=== PATIENT | female | born 1995 | race Two or more races ===

== ENCOUNTER 2019-02-07 10:16 | Inpatient (IN) | payer MEDICAID ==
[2019-02-10 10:13] LABS: ABSOLUTE EOSINOPHILS # (AUTO) 0.1 10^3/uL (0.0-0.6); ABSOLUTE LYMPHOCYTES (AUTO) 1.5 10^3/uL (0.5-4.7); ABSOLUTE MONOCYTES (AUTO) 0.7 10^3/uL (0.1-1.4); ABSOLUTE NEUT (AUTO) 5.1 10^3/uL (1.7-8.2); BASOPHILS % (AUTO) 0.2 % (0-2); EOSINOPHILS % (AUTO) 1.5 % (0-6); HEMATOCRIT 34.9 % (36.0-47.0); HEMOGLOBIN 11.7 g/dL (12.0-15.5); LYMPHOCYTES % (AUTO) 20.7 % (13-45); MEAN CORPUSCULAR HGB CONC 33.4 g/dL (32.0-36.0); MEAN CORPUSCULAR VOLUME 90 fl (80-97); MONOCYTES % (AUTO) 9.1 % (3-13); PLATELET COUNT 127 10^3/uL (150-450); RED BLOOD COUNT 3.88 10^6/uL (3.72-5.28); RED CELL DISTRIBUTION WIDTH 13.3 % (11.5-14.0); SEGMENTED NEUTROPHILS % (AUTO) 68.5 % (42-78); TOTAL CELLS COUNTED % (AUTO) 100 %; WHITE BLOOD COUNT 7.5 10^3/uL (4.0-10.5)
[2019-02-10 10:16] LABS: APPEARANCE,URINE CLOUDY; BILIRUBIN,URINE SMALL (NEGATIVE); CALCIUM OXALATE CRYSTALS,URINE MODERATE /HPF; COLOR,URINE AMBER; GLUCOSE, URINE NEGATIVE (NEGATIVE); KETONES,URINE NEGATIVE (NEGATIVE); LEUKOCYTE ESTERASE,URINE MODERATE (NEGATIVE); NITRITE,URINE NEGATIVE (NEGATIVE); PROTEIN,URINE 30 mg/dL (NEGATIVE); URINE SPECIFIC GRAVITY 1.023
[2019-02-10 10:27] LABS: URINE AMPHETAMINES SCREEN NEGATIVE; URINE BARBITURATES SCREEN NEGATIVE; URINE BENZODIAZEPINES SCREEN NEGATIVE; URINE COCAINE SCREEN NEGATIVE; URINE MARIJUANA (THC) SCREEN NEGATIVE; URINE METHADONE SCREEN NEGATIVE; URINE PHENCYCLIDINE SCREEN NEGATIVE
[2019-02-12 14:26] LABS: HEMATOCRIT 35.2 % (36.0-47.0); HEMOGLOBIN 11.9 g/dL (12.0-15.5); MEAN CORPUSCULAR HEMOGLOBIN 30.3 pg (27.0-33.4); MEAN CORPUSCULAR VOLUME 89 fl (80-97); PLATELET COUNT 127 10^3/uL (150-450); RED BLOOD COUNT 3.94 10^6/uL (3.72-5.28); RED CELL DISTRIBUTION WIDTH 13.6 % (11.5-14.0); WHITE BLOOD COUNT 7.4 10^3/uL (4.0-10.5)
[2019-02-13] MEDS ORDERED: CEFAZOLIN 1 GM/D5W RTU 1 GM/50 ML RTUPB IV PRN (05:00)
[2019-02-13] MEDS ORDERED: RINGERS SOLUTION,LACTATED 1,000 ML IV PRN ×2 (05:00→09:08)
[2019-02-13] MEDS ORDERED: OXYTOCIN 10 UNIT/ML VIAL ONE (07:24)
[2019-02-13] MEDS ORDERED: KETOROLAC TROMETHAMINE 60 MG/2 ML SDV ONE (07:24)
[2019-02-13] MEDS ORDERED: ACETAMINOPHEN 1,000 MG/100 ML RTUPB IV ONE (07:25)
[2019-02-13] MEDS ORDERED: PHENYLEPHRINE HCL INJ/PF 10 MG/1 ML SDV ONE (07:25)
[2019-02-13] MEDS ORDERED: METHYLERGONOVINE MALEATE INJ/PF 0.2 MG/1 ML AMPULE ONE (07:25)
[2019-02-13] MEDS ORDERED: FENTANYL CITRATE INJ/PF 100 MCG/2 ML AMPUL ONE (07:25)
[2019-02-13] MEDS ORDERED: MIDAZOLAM 2 MG/2 ML INJ ONE (07:25)
[2019-02-13] MEDS ORDERED: ONDANSETRON HCL INJ/PF 4 MG/2 ML SDV ONE (07:25)
[2019-02-13] MEDS ORDERED: CEFAZOLIN INJ 1 GM VIAL ONE (08:05)
[2019-02-13] MEDS ORDERED: FENTANYL CITRATE INJ/PF 100 MCG/2 ML AMPUL IV PRN ×3 (08:09)
[2019-02-13] MEDS ORDERED: MEPERIDINE HCL/PF INJ 25 MG/1 ML DISP.SYRIN IV PRN (08:09)
[2019-02-13] MEDS ORDERED: MORPHINE SULFATE 10 MG/ML INJ IV PRN (08:09)
[2019-02-13] MEDS ORDERED: DIPHENHYDRAMINE HCL 50 MG/ML VIAL IV PRN (08:09)
[2019-02-13] MEDS ORDERED: PROMETHAZINE HCL INJ 25 MG/1 ML VIAL IV PRN ×2 (08:09→09:08)
[2019-02-13] MEDS ORDERED: OXYCODONE-ACETAMINOPHEN 5-325 MG TABLET PO PRN ×3 (08:09→09:08)
--- NOTE | 2019-02-13 09:01 | PDOC DELIVERY SUMMARY ---
Delivery Summary - Maternal Hx : II Hx Para: I Hx # Term Pregnancies: 1 Hx # Pregnancies: 0 Number of Living Children: 1 DICK: 02/17/19 Gestational Age: 39 Risk Factors: Previous Ruptured Membranes: AROM Time of Rupture: 08:12 Fluids: Clear - Delivery Labor: Not In Labor Presentation: Vertex Heart Rate Monitoring: Done Pre-Operatively Support Person Present: No Location: OR : Scheduled Placenta Description: normal appearing Number of Vessels (Cord): 3 Nuchal Cord: Yes Delivery of Placenta Date: 02/13/19 Delivery of Placenta Time: 08:14 Estimated Blood Loss: 600 ml - Medications Type of Anesthesia:: Spinal - Infant Assess and Care Baby 1 Male Delivery of Infant Date: 02/13/19 Delivery of Time: 08:13 at 1 minute: 8 at 5 minutes: 8 Preprinted Number On Band: [id number] Skin to Skin: Yes Skin to Skin (Mins): 5 To Nursery At: 08:24 Mode of Transport: Carried Delivery Weight: 3,750 Delivery Length: 21 in - Delivery Personnel Family Practice Medical Doctor: TAMIKO COATS RN: CHANDNI NAYLOR RN: DOTTIE CHRISTIE MD: GAGE BELL
[2019-02-13] MEDS ORDERED: ACETAMINOPHEN 1,000 MG/100 ML RTUPB IV PRN (09:08)
[2019-02-13] MEDS ORDERED: SIMETHICONE 80 MG TAB.CHEW PO PRN (09:08)
[2019-02-13] MEDS ORDERED: ACETAMINOPHEN 325 MG TABLET PO PRN (09:08)
[2019-02-13] MEDS ORDERED: DIPH/PERTUSS(ACELL)/TETANUS VAC/PF 0.5 ML SYR (>=10YO) IM PRN (09:08)
[2019-02-13] MEDS ORDERED: OXYTOCIN/NORMAL SALINE 20 UNIT/1,000 ML RTUINJ IV PRN (09:08)
[2019-02-13] MEDS ORDERED: HYDROMORPHONE HCL INJ/PF 2 MG/ML AMPULE IV PRN (09:08)
--- NOTE | 2019-02-13 09:08 | Operative Report ---
Operative Report DATE OF SURGERY: 02/13/19 PREOPERATIVE DIAGNOSIS: 1. Intrauterine at 39-0/7 weeks. 2. Previo us section. 3. GBS negative. 4. Rh+. 5. Rubella immune POSTOPERATIVE DIAGNOSIS: Same OPERATION: Repeat section SURGEON: GAGE ZAMUDIO ANESTHESIA: Spinal TISSUE REMOVED OR ALTERED: Placenta COMPLICATIONS: None ESTIMATED BLOOD LOSS: 600 mL INTRAOPERATIVE FINDINGS: Male with a cephalic presentation plus nuchal cord x1; vacuum assisted; Apgars 8 at 1, 9 at 5 with a weight of 8 pounds 3 ounces; normal-appearing uterus with a thin lower uterine segment, bilateral tubes and ovaries PROCEDURE: The patient was taken to the operating room where spinal anesthesia was obtained and found to be adequate. She was then prepped and draped in the normal sterile fashion and placed in the dorsal supine position with a leftward tilt. A Pfannenstiel skin incision was then made, using her previous scar as a guide, and carried through to the underlying layers of the fascia with the scalpel. The fascia was incised in the midline and the incision extended laterally with the Orozco scissors. The superior aspect of the fascial incision was then grasped with Brent clamps elevated and the underlying rectus muscles dissected off both bluntly and sharply. Attention was then turned to the inferior aspect of the fascial incision which in a similar fashion was grasped, tented up with Brent clamps, and the rectus muscles dissected off both bluntly and sharply. The rectus muscles were then in the midline and the peritoneum was identified and entered both sharply and bluntly. The peritoneal incision was then extended superiorly and inferiorly with good visualization of the bladder. The bladder blade was inserted and the vesicouterine peritoneum identified grasped with Luxembourger pickups and entered sharply with the Metzenbaum scissors. This incision was then extended laterally with the Metzenbaum scissors and a bladder flap created digitally. The bladder blade was then reinserted and the lower uterine segment incised in a transverse fashion with the scalpel. It was noted, at the lower uterine segment was very thin. Only one pass with the scalpel, allowed me to enter the uterine cavity. The uterine incision was then extended bluntly and with the bandage scissors. The bladder blade was removed and the infant's head was delivered from cephalic presentation atraumatically, with assistance from a Kiwi vacuum. The nose and mouth were suctioned and the cord doubly clamped and cut. The infant was handed off to waiting pediatricians. The placenta was then delivered manually and the uterus exteriorized and cleared of all clots and debris. The uterine incision was then repaired with 0 Vicryl in a running locked fashion. 0-Chromic was used to obtain hemostasis via imbrication of the initial layer. The bladder flap was then repaired with 3-0 Vicryl in a running fashion. The uterus was returned to the patient's abdomen and Interceed was placed overlying the uterine incision, as well as a piece plac ed vertically on the anterior surface of the uterus, to prevent adhesions. The gutters were cleared of all clots and debris. All operative sites were noted to be hemostatic. The fascia was reapproximated with 0 Vicryl in a running fashion from each lateral edge to the midline. The subcutaneous fat layer was then closed in an interrupted fashion with 3-0 vicryl. The skin was closed with 4-0 Monocryl in a running, subcuticular fashion. The patient tolerated the procedure well. Sponge, lap, needle and instrument counts are correct x 2. 2 g of Ancef were given prior to skin incision. The patient was taken to the recovery area awake and in stable condition.
[2019-02-13] MEDS ORDERED: IBUPROFEN 800 MG TABLET PO SCH (12:00)
[2019-02-13] MEDS: OXYCODONE-ACETAMINOPHEN 5-325 MG TABLET PO PRN ×2 (13:30→20:28)
[2019-02-13] MEDS: PRENATAL VITAMIN W DHA CAPSULE PO SCH (13:39)
[2019-02-13] MEDS: DOCUSATE SODIUM 100 MG CAPSULE PO SCH ×2 (13:39→17:13)
[2019-02-13] MEDS ORDERED: KETOROLAC TROMETHAMINE INJ/PF 30 MG/1 ML SDV IV SCH (14:00)
[2019-02-13] MEDS: KETOROLAC TROMETHAMINE INJ/PF 30 MG/1 ML SDV IV SCH (17:13)
[2019-02-14] MEDS: KETOROLAC TROMETHAMINE INJ/PF 30 MG/1 ML SDV IV SCH (02:40)
[2019-02-14 06:47] LABS: HEMATOCRIT 31.3 % (36.0-47.0); HEMOGLOBIN 10.6 g/dL (12.0-15.5); MEAN CORPUSCULAR HEMOGLOBIN 30.4 pg (27.0-33.4); MEAN CORPUSCULAR HGB CONC 33.9 g/dL (32.0-36.0); MEAN CORPUSCULAR VOLUME 90 fl (80-97); PLATELET COUNT 111 10^3/uL (150-450); RED BLOOD COUNT 3.48 10^6/uL (3.72-5.28); RED CELL DISTRIBUTION WIDTH 13.6 % (11.5-14.0); WHITE BLOOD COUNT 10.5 10^3/uL (4.0-10.5)
[2019-02-14] MEDS ORDERED: IRON SUCROSE COMPLEX INJ/PF 100 MG/5 ML SDV IV ONE (09:00)
[2019-02-14] MEDS: OXYCODONE-ACETAMINOPHEN 5-325 MG TABLET PO PRN ×2 (09:54→18:06)
[2019-02-14] MEDS: DOCUSATE SODIUM 100 MG CAPSULE PO SCH ×2 (09:55→18:06)
[2019-02-14] MEDS: PRENATAL VITAMIN W DHA CAPSULE PO SCH (09:55)
--- NOTE | 2019-02-14 10:26 | PDOC PROGRESS REPORT ---
Subjective-OB Progress Note for:: 02/14/19 Subjective: Holding baby, doing well, asking for pain medication, walking, eating well Physical Exam (OB) Vital Signs: Temp Pulse Resp BP Pulse Ox 97.7 F 66 16 122/71 98 02/14/19 03:59 02/14/19 03:59 02/14/19 03:59 02/14/19 03:59 02/14/19 03:59 Intake & Output 02/13/19 02/14/19 02/15/19 06:59 06:59 06:59 Intake Total 550 Output Total 900 Balance -350 Weight 87.1 kg - PIH/Pre-Eclampsia Clonus: Negative - Dressing Removed: No - Opsite; scant sanguinous drainage noted - Lochia Lochia Amount: Scant < 10 ml Lochia Color: Rubra/Red - Abdomen Description: Tender, Soft Hernia Present: No Fundal Description: Firm, Midline Fundal Height: u/u - u/2 Objective-Diagnostic Laboratory: 02/14/19 06:27 02/14/19 06:27 WBC 10.5 RBC 3.48 L Hgb 10.6 L Hct 31.3 L MCV 90 MCH 30.4 MCHC 33.9 RDW 13.6 Plt Count 111 L Assessment and Plan(PN) - Assessment and Plan (1) Status post repeat low transverse section Is this a current diagnosis for this admission?: Yes - Time Spent with Patient Time with patient: Less than 15 minutes Medications reviewed and adjusted accordingly: Yes - Disposition Anticipated Discharge: Home Within: within 24 hours
[2019-02-14] MEDS: IBUPROFEN 800 MG TABLET PO SCH ×3 (12:31→23:22)
[2019-02-15] MEDS: OXYCODONE-ACETAMINOPHEN 5-325 MG TABLET PO PRN (03:07)
[2019-02-15] MEDS: IBUPROFEN 800 MG TABLET PO SCH ×2 (06:38→11:11)
[2019-02-15] MEDS: DOCUSATE SODIUM 100 MG CAPSULE PO SCH (09:59)
[2019-02-15] MEDS: PRENATAL VITAMIN W DHA CAPSULE PO SCH (09:59)
--- NOTE | 2019-02-15 11:51 | PDOC DISCHARGE SUMMARY ---
Final Diagnosis Discharge Date: 02/15/19 - Final Diagnosis (1) Elevated blood pressure reading Is this a current diagnosis for this admission?: Yes (2) Status post repeat low transverse section Is this a current diagnosis for this admission?: Yes Discharge Data - Discharge Medication Prescriptions: Oxycodone HCl/Acetaminophen [Percocet 5-325 mg Tablet] 2 tab PO Q4HP PRN #20 tablet PRN Reason: For Pain Scale 3-5 Ibuprofen [Motrin 800 mg Tablet] 800 mg PO Q6HP PRN #30 tablet PRN Reason: Abdominal Cramping Docusate Sodium [Colace 100 mg Capsule] 100 mg PO BID #60 capsule Home Medications: Prenat 115/Iron Fum/Folic/Dss [ 19 Tablet] 1 tab PO DAILY 02/09/19 Docusate Sodium [Colace 100 mg Capsule] 100 mg PO BID #60 capsule 02/15/19 Ibuprofen [Motrin 800 mg Tablet] 800 mg PO Q6HP PRN #30 tablet 02/15/19 Oxycodone HCl/Acetaminophen [Percocet 5-325 mg Tablet] 2 tab PO Q4HP PRN #20 tablet 02/15/19 Reason(s) for Admission: Ceasarean Section-Repeat Procedures: Ultrasound Intrapartum Procedure(s): : Low Cervical, Transverse - Diagnosis Test Laboratory: Temp Pulse Resp BP Pulse Ox 98.1 F 73 14 120/63 100 02/15/19 11:32 02/15/19 11:32 02/15/19 11:32 02/15/19 11:32 02/15/19 11:32 02/10/19 02/10/19 02/12/19 09:35 09:35 14:05 RBC 3.88 3.94 Hgb 11.7 L 11.9 L Hct 34.9 L 35.2 L Urine Opiates Screen NEGATIVE 02/14/19 06:27 RBC 3.48 L Hgb 10.6 L Hct 31.3 L Urine Opiates Screen - Discharge information/Instructions Discharge Activity: Activity As Tolerated, Balance Activity w/Rest, No Driving, No Lifting Over 10 Pounds, Pelvic Rest, No tub bath, Walk Frequently Discharge Diet: As Tolerated, Regular Disposition: HOME, SELF-CARE Follow up with: [facility] in: 1, Weeks
[2019-02-15 12:16] VITALS: BP 106/54
== END 2019-02-15 13:45 | disposition home or self-care (01) | DRG 788 ==
LOC: 2S 02-13 04:43
PROVIDERS: ADMIT Obstetrics & Gynecology; ATTEND Obstetrics & Gynecology
PROC: 10D00Z1 Extraction of Products of Conception, Low, Open Approach (ICD-10-PCS; principal; 2019-02-13 07:45)
DX: O34.211 Maternal care for low transverse scar from previous cesarean delivery (principal); N85.8 Other specified noninflammatory disorders of uterus; Z3A.39 39 weeks gestation of pregnancy; Z37.0 Single live birth; O69.81X0 Labor and delivery complicated by cord around neck, without compression, not applicable or unspecified; Z88.0 Allergy status to penicillin; Z91.041 Radiographic dye allergy status
CPT/HCPCS: 1961; 36415; 80307; 81001; 85025; 85027; 86850; 86900; 86901; 94799; C1765; J0131; J0690; J1756; J1885; J2210; J2250; J2370; J2405; J2590; J3010; J3490; J7120

== ENCOUNTER 2019-02-27 16:34 | Emergency (ER) | payer MEDICAID ==
--- NOTE | 2019-02-27 17:09 | ER Document Report ---
ED Medical Screen (RME) - General Chief Complaint: Post Surgical Pain Stated Complaint: POST OP COMPLICATIONS Time Seen by Provider: 02/27/19 17:01 Primary Care Provider: BOBBI RICARDO MD [Primary Care Provider] - Follow up as needed Notes: Patient is a 23-year-old female who presents to the emergency department with a chief complaint of possible surgical site issue. Patient states she had a repeat on February 13. Patient reports since then she has increased pain to the surgical site. Patient concerned that she sees a piece of the suturing the thread hanging out of the wound. Patient states that times the wound does feel hot to touch but is not red. Patient denies drainage, fever, nausea vomiting or diarrhea. Patient is swelling from the site. Patient denies urinary symptoms. TRAVEL OUTSIDE OF THE [place] IN LAST 30 DAYS: No - Related Data Allergies/Adverse Reactions: iodine Allergy (Severe, Verified 02/27/19 16:34) Hives Penicillins Allergy (Unknown, Verified 02/27/19 16:34) Past Medical History - Social History Frequency of alcohol use: None Drug Abuse: None GI Medical History: Reports: Hx Gastroesophageal Reflux Disease - no meds. Denies: Hx Hiatal Hernia, Hx Ulcer - Immunizations History of Influenza Vaccine for 03/2017 - 08/2017 Season: No Physical Exam - Vital signs Vitals: Temp Pulse Resp BP Pulse Ox 98.4 F 75 18 123/80 98 02/27/19 16:38 02/27/19 16:38 02/27/19 16:38 02/27/19 16:38 02/27/19 16:38 - Abdominal Inspection: Normal Distension: No distension Bowel sounds: Normal Notes: A quick assessment was performed in triage. Patient has a healing horizontal scar to the lower abdomen. The wound is benign appearing and does not reveal any erythema, drainage, ecchymosis or edema. There are areas a clear piece of string hanging out of the right side of the incision. This appears to be possible suture material but I am sure. Patient's incision is overall benign and well appearing/ Course - Re-evaluation Re-evalutation: 02/27/19 17:08 I have greeted and performed a rapid initial assessment of this patient. A comprehensive ED assessment and evaluation of the patient, analysis of test results and completion of the medical decision making process will be conducted by additional ED providers. - Vital Signs Vital signs: Temp Pulse Resp BP Pulse Ox 98.4 F 75 18 123/80 98 02/27/19 16:38 02/27/19 16:38 02/27/19 16:38 02/27/19 16:38 02/27/19 16:38 Doctor's Discharge - Discharge Referrals: BOBBI RICARDO MD [Primary Care Provider] - Follow up as needed
--- NOTE | 2019-02-27 18:04 | ER Document Report ---
ED General - General Chief Complaint: Post Surgical Pain Stated Complaint: POST OP COMPLICATIONS Time Seen by Provider: 02/27/19 17:01 Primary Care Provider: BOBBI RICARDO MD [ACTIVE STAFF] - Follow up as needed TRAVEL OUTSIDE OF THE [place] IN LAST 30 DAYS: No - HPI Notes: Patient is a 23-year-old female, G2, P2, status post on February 15, who presents the emergency department for evaluation of pain around her scar. She is concerned that there is suture coming out of it. She denies any fevers or chills. No nausea or vomiting. She has had some mild constipation, but continues on stool softeners is doing well. She denies any significant redness around it, but does state it hurts. She is still having some vaginal bleeding, but denies any abnormal vaginal discharge. She is currently breast- feeding. - Related Data Allergies/Adverse Reactions: iodine Allergy (Severe, Verified 02/27/19 16:34) Hives Penicillins Allergy (Unknown, Verified 02/27/19 16:34) Past Medical History - General Information source: Patient - Social History Smoking Status: Never Smoker Frequency of alcohol use: None Drug Abuse: None Family History: Reviewed & Not Pertinent Patient has suicidal ideation: No Patient has homicidal ideation: No GI Medical History: Reports: Hx Gastroesophageal Reflux Disease - no meds. Denies: Hx Hiatal Hernia, Hx Ulcer Review of Systems - Review of Systems Constitutional: No symptoms reported EENT: No symptoms reported Cardiovascular: No symptoms reported Respiratory: No symptoms reported Gastrointestinal: See HPI Genitourinary: No symptoms reported Musculoskeletal: No symptoms reported Skin: See HPI Neurological/Psychological: No symptoms reported Physical Exam - Vital signs Vitals: Temp Pulse Resp BP Pulse Ox 98.4 F 75 18 123/80 98 02/27/19 16:38 02/27/19 16:38 02/27/19 16:38 02/27/19 16:38 02/27/19 16:38 - Notes Notes: Vital signs reviewed, please refer to chart. Head is normocephalic, atraumatic. Pupils equal round, reactive to light. Neck is supple without meningismus. Heart is regular rate and rhythm. Lungs are clear to auscultation bilaterally. Abdomen is soft, nontender, normoactive bowel sounds throughout. Well-healing surgical scar in the low Pfannenstiel position. There is one small area, proximally 4 mm, on the right lateral aspect of the scar, where there is some absorbable suture visible. There is no signs of wound dehiscence, erythema, induration, or fluctuance. Extremities without cyanosis, clubbing. Posterior calves are nontender. Peripheral pulses are equal. Course - Re-evaluation Re-evalutation: 02/27/19 18:07 Patient presents emergency department for evaluation. She is having some pain around her surgical scar, and there is likely extrusion of a mild amount of absorbable suture, but the wound is intact. There is no sign of infection. I am not overly concerned about this at this time. She is told to continue with normal wound care. She can take Tylenol or ibuprofen as needed for pain. She is to follow-up as scheduled with OB. She is to return to the ED with worsening or new concerning symptoms of any sort. - Vital Signs Vital signs: Temp Pulse Resp BP Pulse Ox 98.4 F 75 18 123/80 98 02/27/19 16:38 02/27/19 16:38 02/27/19 16:38 02/27/19 16:38 02/27/19 16:38 Discharge - Discharge Clinical Impression: Postoperative pain, section wound complication Condition: Stable Disposition: HOME, SELF-CARE Additional Instructions: Continue wound care instructions as previously directed. Tylenol or ibuprofen as needed for severe pain. Follow-up with OB. If you develop worsening or new concerning symptoms of any sort, including but not limited to increased redness, pain, drainage, opening of the wound, fevers, return immediately to the ED for further evaluation. Referrals: BOBBI RICARDO MD [ACTIVE STAFF] - Follow up as needed
[2019-02-27 18:32] VITALS: BP 121/76
== END 2019-02-27 18:36 | disposition home or self-care (01) ==
LOC: ER 16:34
DX: G89.18 Other acute postprocedural pain (principal); K59.00 Constipation, unspecified; N93.9 Abnormal uterine and vaginal bleeding, unspecified; Z98.890 Other specified postprocedural states
CPT/HCPCS: 99283

== ENCOUNTER 2020-01-29 12:16 | Emergency (ER) | payer MEDICAID ==
[2020-01-29 12:37] VITALS: BP 126/68
--- NOTE | 2020-01-29 13:30 | ER Document Report ---
ED Medical Screen (RME) - General Chief Complaint: Abscess Stated Complaint: ABSCESS/PELVIC AREA Time Seen by Provider: 01/29/20 13:26 Notes: HPI: 24-year-old female with right vaginal swelling for the last week. Was told she had a Bartholin cyst by her primary care provider who evaluated her but they did not drain the area they put her on Bactrim for the last 3 days it has continued to get worse the patient now presenting for evaluation. No fever PHYSICAL EXAMINATION: exam deferred in triage. I have greeted and performed a rapid initial assessment of this patient. A comprehensive ED assessment and evaluation of the patient, analysis of test results and completion of medical decision making process will be conducted by an additional ED providers. TRAVEL OUTSIDE OF THE [place] IN LAST 30 DAYS: No - Related Data Allergies/Adverse Reactions: iodine Allergy (Severe, Verified 02/27/19 16:34) Hives Penicillins Allergy (Unknown, Verified 02/27/19 16:34) Home Medications: bactrim, naproxen, bcp Past Medical History - Social History Chew tobacco use (# tins/day): No Frequency of alcohol use: None Drug Abuse: None GI Medical History: Reports: Hx Gastroesophageal Reflux Disease - no meds. Denies: Hx Hiatal Hernia, Hx Ulcer Physical Exam - Vital signs Vitals: Temp Pulse Resp BP Pulse Ox 98.7 F 79 15 126/68 H 99 01/29/20 12:36 01/29/20 12:36 01/29/20 12:36 01/29/20 12:36 01/29/20 12:36 Course - Vital Signs Vital signs: Temp Pulse Resp BP Pulse Ox 98.7 F 79 15 126/68 H 99 01/29/20 12:36 01/29/20 12:36 01/29/20 12:36 01/29/20 12:36 01/29/20 12:36
--- NOTE | 2020-01-29 14:59 | ER Document Report ---
ED Skin Rash/Insect Bite/Abscs - General Chief Complaint: Abscess Stated Complaint: ABSCESS/PELVIC AREA Time Seen by Provider: 01/29/20 13:26 Primary Care Provider: NATACHA MAI NP [Primary Care Provider] - Follow up as needed Mode of Arrival: Ambulatory Information source: Patient Notes: Patient presents with a Bartholin abscess that has been present for the past week. Patient saw her primary doctor 3 days ago was placed on Bactrim. Patient denies any improvement of her symptoms. Patient denies any fever. Patient denies any concerns about STI. TRAVEL OUTSIDE OF THE [place] IN LAST 30 DAYS: No - HPI Patient complains to provider of: Tender/swollen area Onset: Last week Onset/Duration: Worse Quality of pain: Achy Pain Level: 4 Skin Character: Swelling, Tenderness, Warm Quality of rash: Painful Relieved by: Denies Similar symptoms previously: No Recently seen / treated by doctor: Yes - Related Data Allergies/Adverse Reactions: iodine Allergy (Severe, Verified 02/27/19 16:34) Hives Penicillins Allergy (Unknown, Verified 02/27/19 16:34) Home Medications: bactrim, naproxen, bcp Past Medical History - General Information source: Patient - Social History Smoking Status: Never Smoker Chew tobacco use (# tins/day): No Frequency of alcohol use: None Drug Abuse: None Occupation: none Lives with: Spouse/Significant other Family History: Reviewed & Not Pertinent Patient has homicidal ideation: No GI Medical History: Reports: Hx Gastroesophageal Reflux Disease - no meds. Denies: Hx Hiatal Hernia, Hx Ulcer Past Surgical History: Reports: Hx Section Review of Systems - Review of Systems Constitutional: No symptoms reported. denies: Fever EENT: No symptoms reported Cardiovascular: No symptoms reported. denies: Chest pain Respiratory: No symptoms reported. denies: Cough Gastrointestinal: No symptoms reported. denies: Abdominal pain, Diarrhea, Nausea, Vomiting Genitourinary: No symptoms reported. denies: Dysuria Female Genitourinary: Vaginal discharge, Other - bartholin abscess Musculoskeletal: No symptoms reported Skin: Lumps - right labia Hematologic/Lymphatic: No symptoms reported Neurological/Psychological: No symptoms reported Physical Exam - Vital signs Vitals: Temp Pulse Resp BP Pulse Ox 98.7 F 79 15 126/68 H 99 01/29/20 12:36 01/29/20 12:36 01/29/20 12:36 01/29/20 12:36 01/29/20 12:36 - General General appearance: Appears well, Alert In distress: None - HEENT Head: Normocephalic, Atraumatic Eyes: Normal Conjunctiva: Normal Nasal: Normal Mouth/Lips: Normal Mucous membranes: Normal Neck: Normal, Supple - Respiratory Respiratory status: No respiratory distress Chest status: Nontender Breath sounds: Normal. No: Rales, Rhonchi, Stridor, Wheezing Chest palpation: Normal - Cardiovascular Rhythm: Regular Heart sounds: S1 appreciated, S2 appreciated - Genitourinary External exam: Other - right bartholin gland abscess Speculum exam: Vaginal discharge Vaginal bleeding: None - Back Back: Normal - Extremities General upper extremity: Normal inspection, Normal strength General lower extremity: Normal inspection, Normal strength - Neurological Neuro grossly intact: Yes Cognition: Normal [place] Coma Scale Eye Opening: Spontaneous [place] Coma Scale Verbal: Oriented Frederic Coma Scale Motor: Obeys Commands Frederic Coma Scale Total: 15 - Psychological Associated symptoms: Normal affect, Normal mood - Skin Skin Temperature: Warm Skin Moisture: Dry Skin Color: Normal Course - Vital Signs Vital signs: Temp Pulse Resp BP Pulse Ox 98.7 F 79 15 126/68 H 99 01/29/20 12:36 01/29/20 12:36 01/29/20 12:36 01/29/20 12:36 01/29/20 12:36 Procedures - Incision and Drainage Right Labia Type: Simple Anesthetic type: 1% Lidocaine Blade size: 11 I&D procedure: Betadine prep applied Incision Method: Incision made by scalpel Amount/type of drainage: Large amount of purulent drainage from right Bartholin gland abscess Discharge - Discharge Clinical Impression: Vaginal discharge, Bartholin's gland abscess, Encounter for incision and drainage procedure Condition: Stable Disposition: HOME, SELF-CARE Instructions: Abscess ([facility]), Oral Narcotic Medication ([facility]), Post Incision and Drainage, Trimethoprim-Sulfa ([facility]) Additional Instructions: Return immediately for any new or worsening symptoms Followup with your primary care provider, call tomorrow to make a followup appointment Cultures are pending, we will call if you need any different treatment Prescriptions: Sulfamethoxazole/Trimethoprim [Bactrim Ds Tablet] 1 each PO BID #10 tablet Metronidazole [Flagyl 500 mg Tablet] 500 mg PO BID #14 tablet Hydrocodone/Acetaminophen [[place] 5-325 mg Tablet] 1 tab PO Q6 PRN #10 tablet PRN Reason: Referrals: NATACHA MAI, [employer] [Primary Care Provider] - Follow up as needed
[2020-01-29] MEDS ORDERED: OXYCODONE-ACETAMINOPHEN 5-325 MG TABLET PO ONE (15:08)
[2020-01-29 16:40] LABS: EPITHELIALS (WET MOUNT) 4+ EPITHELIALS SEEN; T.VAGINALIS (WET MOUNT) NO TRICHOMONAS SEEN; WBCS (WET MOUNT) RARE WBCS SEEN; YEAST (WET MOUNT) NO YEAST SEEN
[2020-01-29 18:05] LABS: CHLAM PCR NOT DETECTED (NOT DETECT)
== END 2020-01-29 17:00 | disposition home or self-care (01) ==
LOC: ER 12:16
DX: N75.1 Abscess of Bartholin's gland (principal); N89.8 Other specified noninflammatory disorders of vagina; Z79.3 Long term (current) use of hormonal contraceptives; Z79.1 Long term (current) use of non-steroidal anti-inflammatories (NSAID); Z88.0 Allergy status to penicillin
CPT/HCPCS: 87070; 87075; 87077; 87205; 87210; 87491; 87591; 99283

== ENCOUNTER 2020-06-09 10:27 | Emergency (ER) | payer MEDICAID ==
--- NOTE | 2020-06-09 11:06 | ER Document Report ---
ED GI/ - General Chief Complaint: Vaginal Pain Stated Complaint: groin pain Time Seen by Provider: 06/09/20 10:58 Primary Care Provider: NATACHA MAI NP [Primary Care Provider] - Follow up as needed TRAVEL OUTSIDE OF THE [place] IN LAST 30 DAYS: No - HPI Notes: 06/09/20 11:10 24-year-old female presents to ED for evaluation of increasingly painful Bartholin cyst to the right lower labial region. Patient was seen earlier this week by her primary care physician and placed on a course of Bactrim which has not improved her symptoms. Patient states that she has had this occur in the past and had it drained over the summer. Notes that she has not been able to get a follow-up with LABORATORY ASSISTANT. Denies any fevers or chills. Notes that it is increasingly painful when she moves and urinates. Denies any dysuria or vaginal bleeding. Denies vaginal discharge. Denies any upper abdominal pain. Denies other complaints. - Related Data Allergies/Adverse Reactions: iodine Allergy (Severe, Verified 06/09/20 10:41) Hives Penicillins Allergy (Unknown, Verified 06/09/20 10:41) Past Medical History - Social History Smoking Status: Never Smoker Family History: Reviewed & Not Pertinent - Medical History Medical History: Negative GI Medical History: Reports: Hx Gastroesophageal Reflux Disease. Denies: Hx Hiatal Hernia, Hx Ulcer Past Surgical History: Reports: Hx Section - X2 Review of Systems - Review of Systems Notes: Constitutional: Negative for fever. HENT: Negative for sore throat. Eyes: Negative for visual changes. Cardiovascular: Negative for chest pain. Respiratory: Negative for shortness of breath. Gastrointestinal: Negative for abdominal pain, vomiting or diarrhea. Genitourinary: Negative for dysuria. Musculoskeletal: Negative for back pain. Skin: + for abscess to labial region Neurological: Negative for headaches, weakness or numbness. 10 point ROS negative except as marked above and in HPI. Physical Exam - Vital signs Vitals: Temp Pulse Resp BP Pulse Ox 99.1 F 92 16 125/76 100 06/09/20 10:40 06/09/20 10:40 06/09/20 10:40 06/09/20 10:40 06/09/20 10:40 General: No acute distress. Alert and oriented x3. Sitting comfortably in a stretcher. Skin: No jaundice, pallor, petechiae, or rashes. Warm and dry. Heart: Regular rate and rhythm. S1,S2. No murmurs, rubs, or gallops. Lungs: Clear to ausculation bilaterally. No wheezes, rhonchi, rales. Equal chest expansion. No retractions. Abdomen: Soft, nontender to palpation, nondistended. Positive bowel sounds in all 4 quadrants. No masses. No CVA tenderness bilaterally. Genitourinary performed with female compensation advisor present: External vagina with erythema and warmth to right labial area roughly 3 cm in nature with central area of fluctuance. Tenderness and fluctuance appreciated along right bartholin's cyst. Speculum was inserted, cultures were taken. Cervical os closed without lesion with white discharge. No blood or masses in the vaginal vault. No cervical motion tenderness. No adnexal tenderness or masses. Back: No midline spinal TTP. No paraspinous muscular TTP. Neuro: GCS 15. Moving all extremities without discomfort. Psych: Mood and affect appropriate. Course - Re-evaluation Re-evalutation: 06/09/20 11:13 24-year-old female presents to ED for evaluation of abscess to the right bartholin's region. There is no sign of systemic illness. Incision and drainage of abscess was performed. Wound culture is pending. Patient is advised to apply warmth compresses and bacitracin dressings to the area. Patient is started on clindamycin and advised to continue on bactrim. Is a large amount of drainage that occurred, patient did not need a catheter placed.Patient is advised of possible MRSA infection. Patient will follow up with primary care for wound check and return if worsening of symptoms. She did receive a pelvic exam however we will hold off on antibiotics for any STD management until testing is resulted. Patient's wet prep did not show signs of yeast infection or bacterial vaginosis or trichomonas. She is advised of these findings. Patient is to follow up with LABORATORY ASSISTANT this week for further management. Understands indications to return to ED. Patient understands indications to return to the ER. Patient is agreeable with this plan. 06/09/20 13:33 - Vital Signs Vital signs: Temp Pulse Resp BP Pulse Ox 99.1 F 92 16 125/76 100 06/09/20 10:40 06/09/20 10:40 06/09/20 10:40 06/09/20 10:40 06/09/20 10:40 - Laboratory Results Critical Laboratory Results Reviewed: No Critical Results - Radiology Results Critical Radiology Results Reviewed: No Critical Results Procedures - Incision and Drainage Right Labia Time completed: 12:50 Type: Complex Anesthetic type: 1% Lidocaine w/epi mL's of anesthetic: 12 Blade size: 11 I&D procedure: Shurclens applied Incision Method: Incision made by scalpel Amount/type of drainage: Large amount of purulent drainage. Discharge - Discharge Clinical Impression: Bartholin's gland abscess Condition: Stable Disposition: HOME, SELF-CARE Instructions: Abscess ([facility]), Post Incision and Drainage, Trimethoprim-Sulfa ([facility]) Prescriptions: Clindamycin HCl 300 mg PO TID #30 capsule Hydrocodone/Acetaminophen [[place] 5-325 mg Tablet] 1 tab PO TID #9 tablet Referrals: NATACHA MAI, THEATER MANAGER [Primary Care Provider] - Follow up as needed
[2020-06-09] MEDS ORDERED: LIDOCAINE 1%/EPINEPHRINE INJ 20 ML VIAL INJ ONE (11:08)
[2020-06-09 12:00] LABS: BACTERIA (WET MOUNT) 4+ BACTERIA SEEN; EPITHELIALS (WET MOUNT) 3+ EPITHELIALS SEEN; T.VAGINALIS (WET MOUNT) NO TRICHOMONAS SEEN; WBCS (WET MOUNT) RARE WBCS SEEN; YEAST (WET MOUNT) NO YEAST SEEN
--- NOTE | 2020-06-09 12:43 | ER Document Report ---
Doctor's Note Notes: 06/09/20 12:42 ED provider note. Patient with a recurrent Bartholin cyst on the right labial fold area. Patient reports about 5 to 6 months ago she had incision and drainage of the cyst and now there is a recurrence at this time. Patient also reports that she has vaginal discharge. Patient is being seen by midlevel named Suman who is going to perform the procedure and pelvic exam.
[2020-06-09 13:26] LABS: CHLAM PCR NOT DETECTED (NOT DETECT)
[2020-06-09 14:29] VITALS: BP 124/76
== END 2020-06-09 14:28 | disposition home or self-care (01) ==
LOC: ER 10:27
DX: N75.1 Abscess of Bartholin's gland (principal); R10.2 Pelvic and perineal pain; Z88.0 Allergy status to penicillin
CPT/HCPCS: 99284; 87070; 87205; 87210; 87075; 87491; 87591; 56420; J3490; 87077